=== PATIENT | female | born 1960 | race Caucasian/White ===

== ENCOUNTER 2022-10-10 17:45 | Inpatient (IN) | payer BC ==
[~2022-10-10] VITALS: Ht 162.6 cm; Wt 65.8 kg
--- NOTE | 2022-10-10 18:13 | NUR ---
blood sample obtained sent to lab
--- NOTE | 2022-10-10 18:13 | NUR ---
established iv line 20 g left ac
[2022-10-10] MEDS ORDERED: ONDANSETRON HCL/PF 4 MG/2 ML VIAL ONE (18:42)
[2022-10-10] MEDS ORDERED: MECLIZINE HCL 25 MG TABLET ONE (18:42)
[2022-10-10] MEDS ORDERED: ONDANSETRON HCL/PF - ER 4 MG/2 ML VIAL IV ONE (19:00)
[2022-10-10] MEDS ORDERED: MECLIZINE HCL 12.5 MG TABLET PO ONE (19:00)
[2022-10-10] MEDS ORDERED: IV NS 0.9% 1,000 ML IV ONE (19:00)
[2022-10-10 19:19] LABS: CALCIUM, SERUM 9.4 mg/dL (8.5-10.1); CARBON DIOXIDE 26 mmol/L (21-32); CHLORIDE 103 mmol/L (98-107); CREATININE 1.2 mg/dL (0.6-1.3); GLUCOSE 147 mg/dL (74-106); POTASSIUM 3.9 mmol/L (3.5-5.1); SODIUM SERUM 140 mmol/L (136-145); UREA NITROGEN, BLOOD 20 mg/dL (7-18)
[2022-10-10 19:25] LABS: ALANINE AMINOTRANSFERASE 28 U/L (12-78); ALKALINE PHOSPHATASE 96 U/L (46-116); ASPARTATE AMINOTRANSFERASE 23 U/L (15-37); BILIRUBIN,DIRECT 0.1 mg/dL (0.0-0.2); BILIRUBIN,TOTAL 0.5 mg/dL (0.2-1.0); LIPASE 137 U/L (73-393); TOTAL PROTEIN, SERUM 7.6 g/dL (6.4-8.2)
[2022-10-10 20:12] LABS: BASOPHILS % (AUTO) 0.1 % (0.0-2.0); EOSINOPHILS % (AUTO) 0.1 % (0.0-6.0); HEMATOCRIT 41 % (33-45); HEMOGLOBIN 13.6 g/dL (11.5-14.8); LYMPHOCYTES # (AUTO) 1.3 K/uL (0.8-4.8); MEAN CORPUSCULAR HGB CONC 33 g/dl (31.0-36.0); MEAN CORPUSCULAR VOLUME 91 fL (82-100); MONOCYTES # (AUTO) 0.4 K/uL (0.1-1.30); MONOCYTES % (AUTO) 3.5 % (2.0-12.0); NEUTROPHILS # (AUTO) 11.1 K/uL (1.8-8.9); NEUTROPHILS % (AUTO) 86.3 % (43.0-81.0); PLATELET COUNT (AUTO) 197 K/uL (150-450); RED BLOOD CELL COUNT(AUTO) 4.55 MIL/uL (4.0-5.2); WHITE BLOOD COUNT (AUTO) 12.8 K/uL (4.3-11.0)
[2022-10-10] MEDS ORDERED: DIAZEPAM 5 MG TABLET PO ONE (20:30)
[2022-10-10] MEDS ORDERED: DIAZEPAM 5 MG TABLET ONE (20:33)
--- NOTE | 2022-10-10 20:33 | NUR ---
COVID SWAB DONE AND SENT TO LAB
--- NOTE | 2022-10-10 22:53 | NUR ---
[facility] PAGED
[2022-10-10] MEDS ORDERED: MECLIZINE HCL 25 MG TABLET PO PRN (23:00)
[2022-10-10] MEDS ORDERED: ONDANSETRON HCL/PF 4 MG/2 ML VIAL IVP PRN (23:00)
[2022-10-10] MEDS ORDERED: MORPHINE SULFATE INJ 2 MG/ML DISP.SYRIN IV PRN (23:00)
[2022-10-10] MEDS ORDERED: ENOXAPARIN SODIUM 40 MG/0.4 ML DISP.SYRIN SQ SCH (23:00)
--- NOTE | 2022-10-10 23:19 | NUR ---
DR. DILAN MALAVE AT PT'S BEDSIDE FOR EVAL
[2022-10-10] MEDS ORDERED: METO-357 PO (23:20)
--- NOTE | 2022-10-10 23:37 | NUR ---
REPORT GIVEN TO ATUL Carney RN FOR WILBERT
[2022-10-11] MEDS ORDERED: hydrALAZINE HCL IV 20 MG VIAL IV PRN
--- NOTE | 2022-10-11 | NUR ---
TAP AND DIE MAKER TECHNICIAN ADMITTING NOTES PT ARRIVED TO UNIT VIA GURNEY BY ER STAFF. PT A/O X4, COOPERATIVE AND ABLE TO MAKE NEEDS KNOWN. VS: 157/88 BP, 55 HR, 97.7 F, 99% O2, 150 LB. STABLE ON RA WITH NO S/S OF RESPIRATORY DISTRESS. DENIES CHEST PAIN BUT C/O HEADACHE. PT STATES DIZZINESS AND NAUSEA ARE BETTER BUT STILL NOT 100% GONE. PLACED ON TELE MONITOR SHOWING SINUS CALVIN 58. SKIN ASSESSED, NO ISSUES NOTED. BELONGINGS ALL ACCOUNTED FOR AND DOCUMENTED IN CHART. IV ACCESS LAC #20G, PATENT AND INTACT, STARTED ON NS 0.9% @ 75 ML/HR PER ORDERS. ORIENTED TO UNIT AND HOW TO USE CALL LIGHT. SAFETY MEASURES IMPLEMENTED: BED LOCKED AND IN LOWEST POSITION, SIDERAILS UP X3, BED ALARM ON, CALL LIGHT AND TRAY TABLE WITHIN REACH. WILL CONTINUE TO MONITOR AND ASSIST.
--- NOTE | 2022-10-11 00:11 | NUR ---
PT TRANSFERRED TO [facility]- VIA HOSPITAL PROTOCOL. VSS.
[2022-10-11] MEDS: IV NS 0.9% 1,000 ML IV SCH ×2 (00:54→13:54)
[2022-10-11] MEDS: ACETAMINOPHEN 325 MG TABLET PO PRN ×2 (00:55→15:20)
[2022-10-11 01:09] LABS: THYROID STIMULATING HORMONE 0.984 uIU/mL (0.358-3.74)
[2022-10-11 06:26] LABS: BASOPHILS % (AUTO) 0.2 % (0.0-2.0); EOSINOPHILS % (AUTO) 0.4 % (0.0-6.0); HEMATOCRIT 37 % (33-45); HEMOGLOBIN 12.5 g/dL (11.5-14.8); LYMPHOCYTES # (AUTO) 2.1 K/uL (0.8-4.8); LYMPHOCYTES % (AUTO) 25.6 % (20.0-44.0); MEAN CORPUSCULAR HGB CONC 34 g/dl (31.0-36.0); MEAN CORPUSCULAR VOLUME 90 fL (82-100); MONOCYTES # (AUTO) 0.6 K/uL (0.1-1.30); MONOCYTES % (AUTO) 7.8 % (2.0-12.0); NEUTROPHILS # (AUTO) 5.4 K/uL (1.8-8.9); PLATELET COUNT (AUTO) 186 K/uL (150-450); RED BLOOD CELL COUNT(AUTO) 4.16 MIL/uL (4.0-5.2); WHITE BLOOD COUNT (AUTO) 8.2 K/uL (4.3-11.0)
[2022-10-11 06:45] LABS: ALBUMIN 3.4 g/dL (3.4-5.0); BILIRUBIN,TOTAL 0.6 mg/dL (0.2-1.0); CALCIUM, SERUM 8.7 mg/dL (8.5-10.1); CREATININE 1.1 mg/dL (0.6-1.3); MAGNESIUM 2.3 mg/dL (1.8-2.4); PHOSPHORUS 3.9 mg/dL (2.5-4.9); POTASSIUM 3.7 mmol/L (3.5-5.1); TOTAL PROTEIN, SERUM 6.6 g/dL (6.4-8.2)
--- NOTE | 2022-10-11 07:10 | NUR ---
COMMUNICATIONS DESIGNER OPENING NOTES RECEIVED PATIENT AWAKE AND IN BED, A/Ox4 ABLE TO MAKE NEEDS KNOWN. ON ROOM AIR, NO S/S OF RESPIRATORY DISTRESS. IV ACCESS LAC #20G RUNNING NS @75 ML/HR. INTACT AND PATENT. NO S/S OF INFILTRATION. ON TELE MONITORING SHOWING SINUS RHYTHM HR 62. NO C/O OF CHEST PAIN OR DISCOMFORT. PATIENT ON BEDREST, USES BEDPAN. SKIN INTACT. SAFETY MEASURES IN PLACE: BED LOCKED AND IN LOWEST POSITION, SIDE RAILS UPx2, CALL LIGHT WITHIN REACH, HOB ELEVATED. WILL CONTINUE TO MONITOR.
--- NOTE | 2022-10-11 07:15 | NUR ---
TRACTOR CRANE OPERATOR CLOSING NOTES PT AWAKE AT THIS TIME. A/O X4, COOPERATIVE AND ABLE TO MAKE NEEDS KNOWN. STABLE ON RA WITH NO S/S OF RESPIRATORY DISTRESS. DENIES PAIN AT THIS TIME. ON TELE MONITOR SHOWING SINUS CALVIN 55. IV ACCESS LAC #20G, PATENT AND INTACT, RUNNING ON NS 0.9% @ 75 ML/HR. SAFETY MEASURES MAINTAINED: BED LOCKED AND IN LOWEST POSITION, SIDERAILS UP X3, BED ALARM ON, CALL LIGHT AND TRAY TABLE WITHIN REACH. WILL ENDORSE WILBERT TO DAY SHIFT NURSE.
[2022-10-11] MEDS ORDERED: LEVOTHYROXINE SODIUM 75 MCG TABLET PO SCH (07:30)
[2022-10-11 08:00] VITALS: BP 146/74
[2022-10-11] MEDS ORDERED: LEVO75TA PO (09:38)
[2022-10-11] MEDS ORDERED: CHOL100043 PO (09:38)
[2022-10-11] MEDS ORDERED: LOSA100T31 PO (09:38)
[2022-10-11] MEDS ORDERED: CYAN-51 PO (09:38)
[2022-10-11] MEDS ORDERED: RED600TA PO (09:38)
[2022-10-11] MEDS ORDERED: LOSARTAN POTASSIUM 50 MG TABLET PO SCH (10:57)
[2022-10-11] MEDS ORDERED: CT SWABBABLE VALVE TRANS SET 1 EA INFUS.SET MC ONE (14:59)
[2022-10-11] MEDS ORDERED: IV NS 0.9% 250 ML IV ONE (14:59)
[2022-10-11] MEDS ORDERED: IOHEXOL-350 100 ML VIAL IV ONE (14:59)
--- NOTE | 2022-10-11 15:15 | NUR ---
RN NOTES PATIENT LEAVING UNIT FOR MRI AND CTAs, PATIENT LEFT VIA WHEELCHAIR, STABLE AND NO S/S OF DIZZINESS. PRN TYLENOL ASKED TO HELP WITH SLIGHT HEADACHE BEFORE MRI.
[2022-10-11 16:00] VITALS: BP 179/79
[2022-10-11] MEDS ORDERED: AMLO-212 PO (17:09)
[2022-10-11] MEDS ORDERED: AMLODIPINE BESYLATE 5 MG TABLET PO SCH (18:00)
[2022-10-11 18:01] VITALS: BP 163/91
--- NOTE | 2022-10-11 19:05 | NUR ---
ENGINEERING ASSOCIATE NOTES PATIENT D/C HOME, STABLE A/Ox4 ABLE TO MAKE NEEDS KNOWN. PATIENT STABLE ON ROOM AIR, NO S/S OF RESPIRATORY DISTRESS. IV ACCESS REMOVED PRESSURE DRESSING APPLIED. ID BAND REMOVED. ALL HEALTH TEACHINGS AND DISCHARGE INSTRUCTIONS GIVEN AND EXPLAINED TO PATIENT. VERBALIZED UNDERSTANDING. ALL FORMS SIGNED AND FILED INTO CHART. SKIN INTACT. PATIENT LEFT UNIT @1900 WITH AND DRY CLEANING MACHINE OPERATOR, MAT VIA WHEELCHAIR. CHARGE NURSE AND MD AWARE OF DISCHARGE.
[2022-10-11] MEDS ORDERED: METOPROLOL SUCCINATE 50 MG TAB.SR.24H PO SCH (22:00)
== END 2022-10-11 19:05 | disposition home or self-care (01) | DRG 149 ==
LOC: ER 17:50 → MED 23:06 → TELE 10-11 00:15
PROVIDERS: ADMIT Internal Medicine; ATTEND Nurse Practitioner Family
DX: H81.10 Benign paroxysmal vertigo, unspecified ear (principal); D72.829 Elevated white blood cell count, unspecified; E11.9 Type 2 diabetes mellitus without complications; Z20.822 Contact with and (suspected) exposure to COVID-19; Z86.69 Personal history of other diseases of the nervous system and sense organs; I10 Essential (primary) hypertension; Z88.2 Allergy status to sulfonamides; Z79.899 Other long term (current) drug therapy; E03.9 Hypothyroidism, unspecified; T44.7X5A Adverse effect of beta-adrenoreceptor antagonists, initial encounter; Y92.009 Unspecified place in unspecified non-institutional (private) residence as the place of occurrence of the external cause; W18.30XA Fall on same level, unspecified, initial encounter
CPT/HCPCS: 36415; 70450-TC; 70496-TC; 70498-TC; 70551-TC; 80048-TC; 80053-TC; 80076-TC; 83605-TC; 83690-TC; 83735-TC; 84100-TC; 84439-TC; 84443-TC; 84484-TC; 85025-TC; 87081-TC; 93307-TC; 97112-TC; 97116-TC; 97530-TC; C9803; G0378; J0360; J1650; J2405; J7030; J7050; J8597; Q9967